=== PATIENT | female | born 1985 | race Native Hawaiian/Other Pacific Islander ===

== ENCOUNTER 2017-05-26 11:47 | Emergency (ER) | payer OTHER ==
[2017-05-26 11:47] VITALS: BMI 21.2
[2017-05-26 11:56] VITALS: TEMP 98.1
[2017-05-26] MEDS ORDERED: DiphenhydrAMINE 50 mg/ml Inj IVP STA (12:10)
[2017-05-26] MEDS ORDERED: Sodium Chloride 0.9% 1,000 ML IV STA (12:10)
--- NOTE | 2017-05-26 12:12 | ED PDOC ---
Arrival/HPI - General Historian: Patient <Jeremie Abdul - Last Filed: 05/26/17 16:39> <Thomas Galvan - Last Filed: 05/26/17 17:31> - General Chief Complaint: High Blood Pressure Time Seen by Provider: 05/26/17 11:50 - History of Present Illness Narrative History of Present Illness (Text): 05/26/17 12:02 32 y/o female, pmh including htn, nkda, c/o headache started this morning. Pt. stated that she went to sleep last night with elevated blood pressure of 141/ 109 around 11pm which she took 160mg of diovan and later noted to be 121/93. Pt. woke up this morning headache and nausea, no change in vision, no chest pain or shortness of breath but noted to have elevated blood pressure of 151/ 108 which she took her usual valsartan 80mg po 8am this morning. Pt. has no chest pain or shortness of breath, no night sweat, no rash, no change in vision , no numbness or tingling, no other medical or psychological complaints. (Jeremie Abdul) Past Medical History - Provider Review Nursing Documentation Reviewed: Yes - Infectious Disease Hx of Infectious Diseases: None - Cardiac Hx Cardiac Disorders: Yes Hx Hypertension: Yes - Pulmonary Hx Respiratory Disorders: Yes Hx Asthma: Yes - Neurological Hx Neurological Disorder: No - HEENT Hx HEENT Disorder: No - Renal Hx Renal Disorder: No - Endocrine/Metabolic Hx Endocrine Disorders: No - Hematological/Oncological Hx Blood Disorders: No - Integumentary Hx Dermatological Disorder: No - Musculoskeletal/Rheumatological Hx Musculoskeletal Disorders: No - Gastrointestinal Hx Gastrointestinal Disorders: No - Genitourinary/Gynecological Hx Genitourinary Disorders: No - Psychiatric Hx Psychophysiologic Disorder: No Hx Substance Use: No - Surgical History Hx Section: Yes - Anesthesia Hx Anesthesia: No <Jeremie Abdul - Last Filed: 05/26/17 16:39> Family/Social History - Physician Review Nursing Documentation Reviewed: Yes Family/Social History: Unknown Family HX Smoking Status: Never Smoked Hx Alcohol Use: No Hx Substance Use: No <Jeremie Abdul - Last Filed: 05/26/17 16:39> Allergies/Home Meds <Jeremie Abdul - Last Filed: 05/26/17 16:39> <Thomas Galvan - Last Filed: 05/26/17 17:31> Allergies/Adverse Reactions: Allergies No Known Allergies Allergy (Verified 05/26/17 11:50) Home Medications: Home Meds Medication Instructions Recorded Confirmed Valsartan [Diovan] 80 mg PO DAILY 05/26/17 05/26/17 Review of Systems - Review of Systems Constitutional: absent: Fatigue, Fevers Eyes: absent: Vision Changes ENT: absent: Hearing Changes Respiratory: absent: SOB, Cough Cardiovascular: absent: Chest Pain Gastrointestinal: Nausea. absent: Abdominal Pain, Vomiting Skin: absent: Rash, Pruritis Neurological: Headache. absent: Dizziness Endocrine: absent: Diaphoresis Psychiatric: absent: Anxiety, Depression <Jeremie Abdul - Last Filed: 05/26/17 16:39> Physical Exam Vital Signs Reviewed: Yes Temperature: Afebrile Blood Pressure: Hypertensive Pulse: Tachycardic Respiratory Rate: Normal Appearance: Positive for: Well-Appearing, Non-Toxic, Comfortable Pain Distress: None Mental Status: Positive for: Alert and Oriented X 3 - Systems Exam Head: Present: Atraumatic, Normocephalic, Other (no temporal artery tenderness, no jaw claudication) Pupils: Present: PERRL Extroacular Muscles: Present: EOMI Conjunctiva: Present: Normal Mouth: Present: Moist Mucous Membranes Neck: Present: Normal Range of Motion, Trachea Midline. No: MIDLINE TENDERNESS , Paraspinal Tenderness, Lymphadenopathy Respiratory/Chest: Present: Clear to Auscultation, Good Air Exchange. No: Respiratory Distress, Accessory Muscle Use Cardiovascular: Present: Regular Rate and Rhythm, Normal S1, S2. No: Murmurs Abdomen: No: Tenderness, Distention, Peritoneal Signs Back: Present: Normal Inspection Upper Extremity: Present: Normal Inspection. No: Cyanosis, Edema Lower Extremity: Present: Normal Inspection. No: Edema Neurological: Present: GCS=15, CN II-XII Intact, Speech Normal, Motor Func Grossly Intact, Gait Normal, Memory Normal Skin: Present: Warm, Dry, Normal Color. No: Rashes Psychiatric: Present: Alert, Oriented x 3, Normal Insight, Normal Concentration <Jeremie Abdul - Last Filed: 05/26/17 16:39> Vital Signs Temp Pulse Resp BP Pulse Ox 05/26/17 16:32 93 H 18 159/94 H 99 05/26/17 14:20 103 H 18 146/86 100 05/26/17 12:41 97 H 152/99 H 05/26/17 12:23 98.1 F 112 H 16 151/108 H 99 05/26/17 12:10 97 H 16 152/99 H 99 05/26/17 11:51 98.1 F 112 H 16 151/108 H 99 Medical Decision Making - Lab Interpretations I have reviewed the lab results: Yes - RAD Interpretation Life Consultant: Radiologist - EKG Interpretation Interpreted by ED Physician: Yes Type: 12 lead EKG <Jeremie Abdul - Last Filed: 05/26/17 16:39> <Thomas Galvan - Last Filed: 05/26/17 17:31> ED Course and Treatment: 05/26/17 12:18 -labs/cardiac enzyme -CT head -EKG -IVF/reglan/benadryl/valsartan 80mg po repeat -monitoring manager -Observe and reassess 05/26/17 14:06 -Dimer 297, CTA ordered. 05/26/17 16:40 -Urine hcg is negative -EKG: NSR @ 84 BPM, no ST elevation or depression, no T wave inversion. -CT Head show Normal CT of the Head. No intracranial mass, hemorrhage or evidence of acute infarct. -CTA No evidence of pulmonary embolism. Incidental 2.2 cm right lobe thyroid nodule. No pulmonary infiltrate/ effusion. No additional abnormality. -Labs show no acute findings -Troponin is negative -UA show +UTI3 -Headache resolved, Pt. is completely asymptomatic, eating and drinking well. -I discussed all labs and radiology results with the patient and she will see dr. gtz tomorrow which she will need thyroid sonogram and thyroid panel check tomorrow plus antihypertensive mediction adjustment. -Discharge home with naproxen, outpatient to perform thyroid sonogram and thyroid panel tomorrow with your own pmd Dr. Gtz and antihypertensive medication adjustment, avoid caffeine product, follow up with your own pmd and fiberglass insulation installer/bookkeeping machine mechanic within 2 days, return to the ER for any new or worsening signs or symptoms. (Jeremie Abdul) - Lab Interpretations Lab Results: 05/26/17 12:40 05/26/17 12:40 Lab Results 05/26/17 13:00: Urine Color Yellow, Urine Appearance Clear, Urine pH 6.0, Ur Specific Letcher 1.020, Urine Protein 30 H, Urine Glucose (UA) Negative, Urine Ketones Negative, Urine Blood Small H, Urine Nitrate Negative, Urine Bilirubin Negative, Urine Urobilinogen 0.2, Ur Leukocyte Esterase Small H, Urine RBC 0 - 2 , Urine WBC 1 - 3, Ur Epithelial Cells 6 - 8 05/26/17 12:40: D-Dimer, Quantitative 297 H 05/26/17 12:40: Sodium 140, Potassium 3.6, Chloride 103, Carbon Dioxide 22, Anion Gap 18, BUN 15, Creatinine 0.7, Est GFR ( Amer) > 60, Est GFR (Non- Af Amer) > 60, Random Glucose 101, Calcium 9.5, Magnesium 1.9, Total Bilirubin 0.3, AST 30, ALT 53, Alkaline Phosphatase 51, Lactate Dehydrogenase 450, Total Creatine Kinase 92, Troponin I < 0.01, Total Protein 8.1, Albumin 4.8, Globulin 3.2, Albumin/Globulin Ratio 1.5 05/26/17 12:40: WBC 9.0, RBC 5.11, Hgb 13.3, Hct 40.2, MCV 78.7 L, MCH 26.0, MCHC 33.1, RDW 14.4, Plt Count 256, MPV 10.4, Gran % 66.0, Lymph % (Auto) 27.7, Evangeline % (Auto) 5.2, Eos % (Auto) 0.9 L, Baso % (Auto) 0.2, Gran # 5.94, Lymph # ( Auto) 2.5, Evangeline # (Auto) 0.5, Eos # (Auto) 0.1, Baso # (Auto) 0.02 - RAD Interpretation Radiology Orders: 05/26/17 12:10 HEAD W/O CONTRAST [CT] Stat 05/26/17 14:13 ANGIO CHEST PE PROTOCOL [CT] Stat HEMORRHAGE: No intracranial hemorrhage. BRAIN: No mass effect or edema. No atrophy or chronic microvascular ischemic changes. VENTRICLES: Unremarkable. No hydrocephalus. CALVARIUM: Unremarkable. PARANASAL SINUSES: Unremarkable as visualized. No significant inflammatory changes. MASTOID AIR CELLS: Unremarkable as visualized. No inflammatory changes. OTHER FINDINGS: None. IMPRESSION: Normal CT of the Head. No intracranial mass, hemorrhage or evidence of acute infarct. CTA: PULMONARY ARTERIES: Unremarkable. No pulmonary embolism. AORTA: No acute findings. No thoracic aortic aneurysm. LUNGS: Unremarkable. No nodule, mass or pulmonary consolidation. PLEURAL SPACES: Unremarkable. No effusion or pneuomothorax. HEART: Unremarkable. No cardiomegaly. No significant pericardial effusion. LYMPH NODES: No lymphadenopathy. BONES, CHEST WALL: Unremarkable. No fracture or destructive lesion OTHER FINDINGS: Nodule in right lobe of thyroid, 2.2 cm. Recommend nonemergent correlation with thyroid ultrasound examination. IMPRESSION: No evidence of pulmonary embolism. Incidental 2.2 cm right lobe thyroid nodule. No pulmonary infiltrate/ effusion. No additional abnormality. (Jeremie Abdul) - EKG Interpretation EKG Interpretation (Text): 05/26/17 13:34 -EKG: NSR @ 84 BPM, no ST elevation or depression, no T wave inversion. (Jeremie Abdul) - Medication Orders Current Medication Orders: Discontinued Medications Diphenhydramine HCl (Benadryl) 50 mg IVP STAT STA Stop: 05/26/17 12:11 Last Admin: 05/26/17 12:41 Dose: 50 mg IVP Administration Document 05/26/17 12:41 SRE (Rec: 05/26/17 12:41 SRE [id number]) Charges for Administration # of IVP Administrations 1 Sodium Chloride (Sodium Chloride 0.9%) 1,000 mls @ 999 mls/hr IV .Q1H1M STA Stop: 05/26/17 13:10 Last Admin: 05/26/17 12:38 Dose: 999 mls/hr eMAR Start Stop Document 05/26/17 12:38 SRE (Rec: 05/26/17 12:40 SRE [id number]) Intravenous Solution Start Date 05/26/17 Start Time 12:40 End Date 05/26/17 End time 13:40 Total Infusion Time 60 Losartan Potassium (Cozaar) 50 mg PO STAT STA Stop: 05/26/17 12:19 Last Admin: 05/26/17 12:41 Dose: 50 mg MAR Pulse and Blood Pressure Document 05/26/17 12:41 SRE (Rec: 05/26/17 12:41 SRE [id number]) Pulse Pulse Rate (60-90) 97 Blood Pressure Blood Pressure (100/60-150/90) 152/99 Metoclopramide HCl (Reglan) 10 mg IVP STAT STA Stop: 05/26/17 12:11 Last Admin: 05/26/17 12:40 Dose: 10 mg IVP Administration Document 05/26/17 12:40 SRE (Rec: 05/26/17 12:41 SRE [id number]) Charges for Administration # of IVP Administrations 1 - PA / TRANSONIC ENGINEER / Resident Statement / has reviewed & agrees with the documentation as recorded. <Jeremie Abdul - Last Filed: 05/26/17 16:39> - PA / TRANSONIC ENGINEER / Resident Statement / has reviewed & agrees with the documentation as recorded. <Thomas Galvan - Last Filed: 05/26/17 17:31> Disposition/Present on Arrival - Present on Arrival Any Indicators Present on Arrival: No History of DVT/PE: No History of Uncontrolled Diabetes: No Urinary Catheter: No History of Decub. Ulcer: No History Surgical Site Infection Following: None - Disposition Have Diagnosis and Disposition been Completed?: Yes Disposition Time: 12:18 Patient Plan: Discharge <Jeremie Abdul - Last Filed: 05/26/17 16:39> <Thomas Galvan - Last Filed: 05/26/17 17:31> - Disposition Diagnosis: Headache, Hypertension, Thyroid nodule, UTI (urinary tract infection) Disposition: HOME/ ROUTINE Condition: IMPROVED Additional Instructions: -Discharge home with naproxen, macrobid, outpatient to perform thyroid sonogram and thyroid panel tomorrow with your own pmd Dr. Gtz and antihypertensive medication adjustment, avoid caffeine product, follow up with your own pmd and fiberglass insulation installer/bookkeeping machine mechanic within 2 days, return to the ER for any new or worsening signs or symptoms. Prescriptions: Naproxen 500 mg PO BID #20 tablet Nitrofurantoin Macrocrystals [Macrobid] 100 mg PO BID #14 cap Referrals: Hansa Capellan MD [Medical Doctor] - Follow up with primary Dru Garcia MD [Staff Provider] - Follow up with primary Merry Gtz MD [Family Provider] - Follow up with primary Forms: WORK NOTE
[2017-05-26 13:00] LABS: ALB/GLOB RATIO 1.5 (1.1-1.8); ALBUMIN 4.8 g/dL (3.0-4.8); ALT/SGPT 53 U/L (7-56); AST/SGOT 30 U/L (14-36); BASO # 0.02 K/mm3 (0.0-2.0); BASO % 0.2 % (0.0-3.0); BLOOD UREA NITROGEN 15 mg/dL (7-21); CALCIUM 9.5 mg/dL (8.4-10.5); EOS # 0.1 (0.0-0.7); EOS % 0.9 % (1.5-5.0); GFR AFRICAN-AMERICAN > 60; GFR NON-AFRICAN AMERICAN > 60; GRAN # 5.94 (1.4-6.5); HEMOGLOBIN 13.3 g/dL (12.0-16.0); LYMPH # 2.5 (1.2-3.4); LYMPH % 27.7 % (22.0-35.0); MEAN CELL VOLUME 78.7 fl (80.0-105.0); MEAN CORPUSCULAR HGB CONC 33.1 g/dl (31.0-37.0); MEAN PLATELET VOLUME 10.4 fl (7.0-11.0); MONO # 0.5 (0.1-0.6); MONO % 5.2 % (1.0-6.0); RBC 5.11 10^6/uL (3.5-6.1); RED CELL DISTRIBUTION WIDTH 14.4 % (11.5-14.5)
[2017-05-26 13:12] LABS: TROPONIN I < 0.01 ng/mL
[2017-05-26 13:17] LABS: URINE BILIRUBIN NEGATIVE (NEGATIVE); URINE BLOOD SMALL (NEGATIVE); URINE GLUCOSE (UA) NEGATIVE (NEGATIVE); URINE LEUKOCYTE ESTERASE SMALL Leu/uL (NEGATIVE); URINE PROTEIN 30 mg/dL (<30 mg/dL); URINE UROBILINOGEN 0.2 E.U./dL (<1 E.U./dL)
[2017-05-26 13:18] LABS: URINE APPEARANCE CLEAR (CLEAR); URINE COLOR YELLOW (YELLOW)
[2017-05-26 13:25] LABS: URINE RBC 0 - 2 /hpf (0-2)
--- NOTE | 2017-05-26 13:57 | CT ---
PROCEDURE: CT HEAD WITHOUT CONTRAST. HISTORY: headache COMPARISON: None available. TECHNIQUE: Axial computed tomography images were obtained through the head/brain without intravenous contrast. Radiation dose: Total exam DLP = 896.41 mGy-cm. This CT exam was performed using one or more of the following dose reduction techniques: Automated exposure control, adjustment of the mA and/or kV according to patient size, and/or use of iterative reconstruction technique. FINDINGS: HEMORRHAGE: No intracranial hemorrhage. BRAIN: No mass effect or edema. No atrophy or chronic microvascular ischemic changes. VENTRICLES: Unremarkable. No hydrocephalus. CALVARIUM: Unremarkable. PARANASAL SINUSES: Unremarkable as visualized. No significant inflammatory changes. MASTOID AIR CELLS: Unremarkable as visualized. No inflammatory changes. OTHER FINDINGS: None. IMPRESSION: Normal CT of the Head. No intracranial mass, hemorrhage or evidence of acute infarct.
[2017-05-26 14:22] VITALS: RESP 18
[2017-05-26] MEDS ORDERED: Iohexol 350 MG/100 ML VIAL ONE (14:47)
[2017-05-26 16:34] VITALS: BP 159/94; PULSE 93; O2SAT 99
--- NOTE | 2017-05-26 16:37 | CT ---
PROCEDURE: CT Chest with contrast (Pulmonary Angiogram) HISTORY: elevated dimer 297, tachy 100 COMPARISON: None available. TECHNIQUE: Axial computed tomography images were obtained of the chest in the pulmonary arterial phase of enhancement. Coronal and sagittal reformatted images were created and reviewed. Intravenous contrast dose: 89 mL Omnipaque 350 Radiation dose: Total exam DLP = 402.63 mGy-cm. This CT exam was performed using one or more of the following dose reduction techniques: Automated exposure control, adjustment of the mA and/or kV according to patient size, and/or use of iterative reconstruction technique. FINDINGS: PULMONARY ARTERIES: Unremarkable. No pulmonary embolism. AORTA: No acute findings. No thoracic aortic aneurysm. LUNGS: Unremarkable. No nodule, mass or pulmonary consolidation. PLEURAL SPACES: Unremarkable. No effusion or pneuomothorax. HEART: Unremarkable. No cardiomegaly. No significant pericardial effusion. LYMPH NODES: No lymphadenopathy. BONES, CHEST WALL: Unremarkable. No fracture or destructive lesion OTHER FINDINGS: Nodule in right lobe of thyroid, 2.2 cm. Recommend nonemergent correlation with thyroid ultrasound examination. IMPRESSION: No evidence of pulmonary embolism. Incidental 2.2 cm right lobe thyroid nodule. No pulmonary infiltrate/ effusion. No additional abnormality.
--- NOTE | 2017-05-27 08:54 | CARD ---
APPROVED REPORT EKG Measurement Heart [id number] [id number] <Conclusion> Normal sinus rhythm with sinus arrhythmia Normal ECG
== END 2017-05-26 16:52 | disposition home or self-care (01) ==
LOC: ED 11:47
DX: I10 Essential (primary) hypertension (principal); R51 Headache; N39.0 Urinary tract infection, site not specified; E04.1 Nontoxic single thyroid nodule
CPT/HCPCS: 70450; 71275; 80053; 81001; 82550; 83615; 83735; 84484; 85025; 85378; 87086; 93005; 96361; 96374; 96375; 99285; J1200; J2765; J7040; Q9967

== ENCOUNTER 2018-02-21 15:25 | Emergency (ER) | payer OTHER ==
[2018-02-21 15:39] VITALS: BMI 25.7
[2018-02-21 15:48] VITALS: RESP 18; TEMP 98.5
--- NOTE | 2018-02-21 16:41 | ED PDOC ---
Arrival/HPI - General Chief Complaint: Palpitations Time Seen by Provider: 02/21/18 16:32 Historian: Patient - History of Present Illness Narrative History of Present Illness (Text): 02/21/18 16:39 33yo female with pmhx of hypertension present with complaint of palpitation since yesterday. States she had FNA yesterday and her thyroid level was normal the last time it was checked. Denies chest pain, dizziness, nausea, vomiting, abdominal pain, headache, focal weakness, any other complaint. Past Medical History - Provider Review Nursing Documentation Reviewed: Yes - Infectious Disease Hx of Infectious Diseases: None - Cardiac Hx Cardiac Disorders: Yes Hx Hypertension: Yes - Pulmonary Hx Respiratory Disorders: Yes Hx Asthma: Yes - Neurological Hx Neurological Disorder: No - HEENT Hx HEENT Disorder: No - Renal Hx Renal Disorder: No - Endocrine/Metabolic Hx Endocrine Disorders: No - Hematological/Oncological Hx Blood Disorders: No - Integumentary Hx Dermatological Disorder: No - Musculoskeletal/Rheumatological Hx Musculoskeletal Disorders: No - Gastrointestinal Hx Gastrointestinal Disorders: No - Genitourinary/Gynecological Hx Genitourinary Disorders: No - Psychiatric Hx Psychophysiologic Disorder: No Hx Substance Use: No - Surgical History Hx Section: Yes - Anesthesia Hx Anesthesia: No Family/Social History - Physician Review Nursing Documentation Reviewed: Yes Family/Social History: Unknown Family HX Smoking Status: Never Smoked Hx Alcohol Use: Yes Frequency of alcohol use: Socially Hx Substance Use: No Allergies/Home Meds Allergies/Adverse Reactions: Allergies No Known Allergies Allergy (Verified 02/21/18 15:39) Home Medications: Home Meds Medication Instructions Recorded Confirmed Valsartan [Diovan] 80 mg PO DAILY 05/26/17 05/26/17 Review of Systems - Physician Review All systems were reviewed & negative as marked: Yes - Review of Systems Constitutional: Normal Eyes: Normal ENT: Normal Respiratory: Normal Cardiovascular: Palpitations. absent: Chest Pain Gastrointestinal: Normal Genitourinary Female: Normal Musculoskeletal: Normal Skin: Normal Neurological: Normal Endocrine: Normal Hemo/Lymphatic: Normal Psychiatric: Normal Physical Exam Vital Signs Reviewed: Yes Vital Signs Temp Pulse Resp BP Pulse Ox 02/21/18 15:46 98.5 F 95 H 18 134/82 99 Temperature: Afebrile Blood Pressure: Normal Pulse: Regular Respiratory Rate: Normal Appearance: Positive for: Well-Appearing, Non-Toxic, Comfortable Pain Distress: None Mental Status: Positive for: Alert and Oriented X 3 - Systems Exam Head: Present: Atraumatic, Normocephalic Pupils: Present: PERRL Extroacular Muscles: Present: EOMI Conjunctiva: Present: Normal Mouth: Present: Moist Mucous Membranes Neck: Present: Normal Range of Motion Respiratory/Chest: Present: Clear to Auscultation, Good Air Exchange. No: Respiratory Distress, Accessory Muscle Use Cardiovascular: Present: Regular Rate and Rhythm, Normal S1, S2. No: Murmurs, Tachycardic Abdomen: No: Tenderness, Distention, Peritoneal Signs Back: Present: Normal Inspection Upper Extremity: Present: Normal Inspection. No: Cyanosis, Edema Lower Extremity: Present: Normal Inspection. No: Edema Neurological: Present: GCS=15, CN II-XII Intact, Speech Normal Skin: Present: Warm, Dry, Normal Color. No: Rashes Psychiatric: Present: Alert, Oriented x 3, Normal Insight, Normal Concentration Medical Decision Making ED Course and Treatment: 02/21/18 17:47 33yo female in ED with complaint of palpitation x 2days. Labs EKG chest xray Pt was hemodynamically stable in ED EKG NSR @ 98bpm Labs was reviewed and unremarkable thyroid profile pending Pt will likely need an outpt holter monitor Result was DW the pt and she was referred to her PMD/chemist assistant - RAD Interpretation Radiology Orders: 02/21/18 16:33 CHEST PORTABLE [RAD] Stat Disposition/Present on Arrival - Present on Arrival Any Indicators Present on Arrival: No History of DVT/PE: No History of Uncontrolled Diabetes: No Urinary Catheter: No History of Decub. Ulcer: No History Surgical Site Infection Following: None - Disposition Have Diagnosis and Disposition been Completed?: Yes Diagnosis: Palpitation Disposition: HOME/ ROUTINE Disposition Time: 18:25 Patient Plan: Discharge Patient Problems: Current Active Problems Problem Status Onset Palpitation Acute Condition: STABLE Discharge Instructions (ExitCare): Palpitations Additional Instructions: Follow up with your doctor/Corporate Controller Return to ED for any worsening symptoms Referrals: Merry Beltran MD [Primary Care Provider] - Follow up with primary Forms: Claim Maps (Icelandic)
--- NOTE | 2018-02-21 17:14 | RAD ---
Date of service: 02/21/2018 HISTORY: palpitation COMPARISON: No prior. FINDINGS: LUNGS: No active pulmonary disease. PLEURA: No significant pleural effusion identified, no pneumothorax apparent. CARDIOVASCULAR: No atherosclerotic calcification present Normal. OSSEOUS STRUCTURES: No significant abnormalities. VISUALIZED UPPER ABDOMEN: Normal. OTHER FINDINGS: None. IMPRESSION: No active disease.
[2018-02-21 17:23] LABS: BASO # 0.02 K/mm3 (0.0-2.0); BASO % 0.2 % (0.0-3.0); EOS # 0.1 (0.0-0.7); GRAN # 6.22 (1.4-6.5); GRAN % 66.6 % (50.0-68.0); HEMOGLOBIN 12.9 g/dL (12.0-16.0); LYMPH # 2.5 (1.2-3.4); LYMPH % 26.5 % (22.0-35.0); MEAN CELL VOLUME 83.2 fl (80.0-105.0); MEAN CORPUSCULAR HEMOGLOBIN 27.5 pg (25.0-35.0); MEAN CORPUSCULAR HGB CONC 33.1 g/dl (31.0-37.0); MONO # 0.5 (0.1-0.6); MONO % 5.7 % (1.0-6.0); RBC 4.69 10^6/uL (3.5-6.1); RED CELL DISTRIBUTION WIDTH 12.6 % (11.5-14.5); WHITE BLOOD COUNT 9.3 10^3/uL (4.5-11.0)
[2018-02-21 17:24] LABS: URINE APPEARANCE CLEAR (CLEAR); URINE BILIRUBIN NEGATIVE (NEGATIVE); URINE BLOOD NEGATIVE (NEGATIVE); URINE COLOR YELLOW (YELLOW); URINE GLUCOSE (UA) NEGATIVE (NEGATIVE); URINE LEUKOCYTE ESTERASE NEGATIVE Leu/uL (NEGATIVE); URINE PROTEIN NEGATIVE mg/dL (<30 mg/dL); URINE UROBILINOGEN 0.2 E.U./dL (<1 E.U./dL)
[2018-02-21 17:28] LABS: INR 0.96; PROTHROMBIN TIME 10.9 SECONDS (9.4-12.5)
[2018-02-21 17:30] LABS: ALB/GLOB RATIO 1.4 (1.1-1.8); ALBUMIN 4.4 g/dL (3.0-4.8); ALT/SGPT 18 U/L (7-56); AST/SGOT 23 U/L (14-36); BLOOD UREA NITROGEN 14 mg/dL (7-21); CALCIUM 9.4 mg/dL (8.4-10.5); GFR NON-AFRICAN AMERICAN > 60
[2018-02-21 17:40] VITALS: BP 119/72; PULSE 79; O2SAT 98
[2018-02-21 17:41] LABS: TROPONIN I < 0.01 ng/mL
[2018-02-21 17:44] LABS: BARBITURATES, UR NEGATIVE (NEGATIVE); BENZODIAZEPINES, UR NEGATIVE (NEGATIVE); OPIATES, UR NEGATIVE (NEGATIVE); PHENCYCLIDINE, UR NEGATIVE (NEGATIVE)
[2018-02-21 18:17] LABS: T3 UPTAKE 33.3 % (23.0-41.0); T4 7.4 ug/dL (5.5-11.0)
--- NOTE | 2018-02-21 19:49 | CARD ---
APPROVED REPORT Date of service: 02/21/2018 EKG Measurement Heart [id number] PA [id number] [id number] <Conclusion> Normal sinus rhythm Normal ECG
== END 2018-02-21 18:42 | disposition home or self-care (01) ==
LOC: ED 15:25
DX: R00.2 Palpitations (principal); I10 Essential (primary) hypertension